=== PATIENT | male | born 1980 | race Caucasian/White ===

== ENCOUNTER 2021-05-05 01:34 | Emergency (ER) | payer MEDICAID ==
--- NOTE | 2021-05-05 02:54 | NUR ---
CALLED FOR MIN. NO ANSWER
--- NOTE | 2021-05-05 03:14 | NUR ---
CALLED FOR TRIAGE. NO ANSWER
--- NOTE | 2021-05-05 03:57 | NUR ---
CALLED FOR TRIAGE. NO ANSWER
== END 2021-05-05 03:58 | disposition left against medical advice (07) ==
LOC: ER 01:41
DX: Z53.21 Procedure and treatment not carried out due to patient leaving prior to being seen by health care provider (principal)

== ENCOUNTER 2021-05-05 06:14 | Inpatient (IN) | payer MEDICAID ==
[~2021-05-05] VITALS: Ht 190.5 cm; Wt 89.1 kg
--- NOTE | 2021-05-05 06:45 | NUR ---
PT AAOX4. BIBSELF C/O HAVING RLE REDNESS, SWELLING, AND PAIN X 4 DAYS. PT WAS PLACED ON KEFLEX. PLACED IN BED 3 ON MONITOR AND PULSE OX.
--- NOTE | 2021-05-05 07:06 | NUR ---
LINE ESTABLISHED LAC 18G, BLOOD COLLECTED, SENT TO LAB.
[2021-05-05] MEDS ORDERED: CEFTRIAXONE 1GM BAG (ER ONLY) 50 ML IV ONE (07:11)
[2021-05-05] MEDS ORDERED: CEFTRIAXONE 1 G in IV D5W 50 ML IV ONE (07:30)
[2021-05-05] MEDS ORDERED: VANCOMYCIN 1 GM in IV D5W 250 ML IV ONE (07:30)
[2021-05-05] MEDS ORDERED: IV NS 0.9% 1,000 ML IV ONE (07:30)
[2021-05-05 07:31] LABS: BASOPHILS % (AUTO) 0.6 % (0.0-2.0); EOSINOPHILS % (AUTO) 1.1 % (0.0-6.0); HEMATOCRIT 35 % (39-51); HEMOGLOBIN 12.1 g/dL (13.5-17.5); LYMPHOCYTES # (AUTO) 1.2 K/uL (0.8-4.8); LYMPHOCYTES % (AUTO) 13.7 % (20.0-44.0); MEAN CORPUSCULAR HGB CONC 35 g/dl (31.0-36.0); MEAN CORPUSCULAR VOLUME 95 fL (80-96); MONOCYTES # (AUTO) 0.9 K/uL (0.1-1.30); MONOCYTES % (AUTO) 10.5 % (2.0-12.0); NEUTROPHILS # (AUTO) 6.5 K/uL (1.8-8.9); NEUTROPHILS % (AUTO) 74.1 % (43.0-81.0); PLATELET COUNT (AUTO) 276 K/uL (150-450); RED BLOOD CELL COUNT(AUTO) 3.68 MIL/uL (4.5-6.0); WHITE BLOOD COUNT (AUTO) 8.7 K/uL (4.3-11.0)
--- NOTE | 2021-05-05 07:58 | NUR ---
TI[employer] DEVELOPER AT BEDSIDE
[2021-05-05 09:29] LABS: CALCIUM, SERUM 9.5 mg/dL (8.5-10.1); CREATININE 1.1 mg/dL (0.6-1.3); POTASSIUM 4.3 mmol/L (3.5-5.1)
[2021-05-05] MEDS ORDERED: MAG HYDROX/AL HYDROX/SIMETH 30 ML UDC PO PRN (10:00)
[2021-05-05] MEDS ORDERED: ONDANSETRON HCL/PF 4 MG/2 ML VIAL IVP PRN (10:00)
[2021-05-05] MEDS ORDERED: ACETAMINOPHEN 325 MG TABLET PO PRN (10:00)
[2021-05-05] MEDS ORDERED: ZOLPIDEM TARTRATE 5 MG TABLET PO PRN (10:00)
[2021-05-05] MEDS ORDERED: MAGNESIUM HYDROXIDE 30 ML UDC PO PRN (10:00)
[2021-05-05] MEDS ORDERED: ENOXAPARIN SODIUM 40 MG/0.4 ML DISP.SYRIN SQ ONE (10:04)
[2021-05-05] MEDS: ENOXAPARIN SODIUM 40 MG/0.4 ML DISP.SYRIN SQ SCH (10:17)
--- NOTE | 2021-05-05 10:53 | NUR ---
ROOM 317-1
--- NOTE | 2021-05-05 11:04 | NUR ---
REPORT GIVEN TO ABEBA GLASGOW
--- NOTE | 2021-05-05 11:28 | NUR ---
MS/FISHERIES TECHNICIAN NOTE RECEIVED PATIENT A TRANSFER FROM THE ER VIA [facility]. PATIENT IS ALERT AND ORIENTEDX4, ABLE TO MAKE NEEDS KNOWN. STABLE ON ROOM AIR WITH O2 SAT AT 98%. NO PAIN/DISTRESS NOTED AT THIS TIME. SKIN IS INTACT WITH SWELLING AND REDNESS NOTED ON RIGHT LOWER EXTREMITY DUE TO CELLULITIS A DIAGNOSIS. CONTINENT WITH BRP. IV ACCESS ON LEFT AC #20G IS INTACT AND PATENT ON SALINE LOCK. SAFETY PRECAUTIONS OBSERVED: BED LOCKED ON LOWEST POSITION, SIDE RAILS UP X2, CALL LIGHT WITHIN REACH. WILL CONTINUE TO MONITOR PATIENT.
[2021-05-05 17:03] LABS: IRON, SERUM 55 ug/dl (50-175); TOTAL IRON BINDING CAPACITY 173 ug/dl (250-450)
--- NOTE | 2021-05-05 17:25 | NUR ---
MS/RN NOTES PATIENT ASKED STAFF IF HE CAN GO DOWNSTAIRS TO GET SOMETHING IN HIS CAR. PATIENT IS ALERT AND ORIENTED X4. RN SENT TUYET DANIELLE TO ACCOMPANY PATIENT. TUYET DANIELLE WAITED IN THE FRONT LOBBY FOR THE PATIENT. PATIENT DID NOT CAME BACK AT THE LOBBY UNTIL AN HOUR LATER. PER PATIENT. HE IS WAITING FOR HIS MOM TO COME BEFORE HE GOES BACK UPSTAIRS IN HIS ROOM. RN EXPLAINED TO THE PATIENT THAT HE NEEDS TO BE IN HIS ROOM BECAUSE WE NEEDS TO MONITOR HIM AND ADMINISTER HIS MEDS. RN ALSO INFORMED PATIENT THAT SECURITY WILL NOTIFY RN IF PATIENT'S VISITOR COMES. PATIENT AGREED TO GO BACK TO HIS ROOM.
--- NOTE | 2021-05-05 19:16 | NUR ---
TELE/RN CLOSING NOTES PATIENT IS RESTING IN BED, ALERT AND ORIENTEDX4, ABLE TO MAKE NEEDS KNOWN. AMBULATORY. NO SOB, NO DISTRESS NOTED AT THIS TIME. LEFT AC #18G IS INTACT AND PATENT ON SALINE LOCK. ALL NEEDS MET. SAFETY PRECAUTIONS IN PLACED: BED LOCKED ON LOWEST POSITION, SIDE RAILS UPX2, CALL LIGHT WITHIN EASY REACH. WILL ENDORSE TO THE NEXT SHIFT FOR DAVID.
[2021-05-05 20:00] VITALS: BP 113/66
[2021-05-05] MEDS: VANCOMYCIN 1.25 GM in IV D5W 250 ML IV SCH (20:03)
--- NOTE | 2021-05-05 20:48 | NUR ---
RN OPENING PATIENT IN BED WITH EYES CLOSED, EASY TO AROUSE. A/OX4. NO S/S OF APPARENT DISTRESS TOLERATING ROOM AIR. NO C/O PAIN AT THIS TIME. NO FLUIDS RUNNING AT THIS TIME. SAFETY IN PLACE. WILL CONTINUE TO MONITOR.
--- NOTE | 2021-05-05 23:32 | NUR ---
MS RN NOTES PATIENT ASKED TO SMOKE. ASKED CHARGE NURSE YOAN. YOAN SAID IT IS OKAY FOR THE PATIENT TO SMOKE 1 TIME PER SHIFT, AND ACCOMPANIED BY TUYET BOYCE. PATIENT WENT DOWN AT THIS TIME WITH AUSTEN. PATIENT WAS REMINDED TO ONLY SMOKE WITHIN HOSPITAL PARAMETERS AND NOT TO GO TO HIS CAR. PATIENT ACKNOWLEDGED THIS.
--- NOTE | 2021-05-06 02:48 | NUR ---
MS RN NOTES PATIENT WENT DOWN AGAIN EVEN WHEN CHARGE NURSE TOLD HIM NOT TOO. I WAS WITH ANOTHER PATIENT AND PER YOAN PATIENT JUST WENT DOWN ON HIS OWN. CHARGE NURSE CALLED SECURITY AND AUSTEN BENZ AND LASHA REA TO FIND PATIENT. PATIENT FOUND IN HIS CAR. PER LASHA REA, PATIENT WAS FOUND IN HIS CAR DOING SOME KIND OF DRUG. PATIENT DOES ADMIT TO HEROINE USE OCCASIONALLY ON ADMISSION ENDORSED TO ME BY ABEBA, MORNING SHIFT RN.
--- NOTE | 2021-05-06 02:59 | NUR ---
MS RN NOTES PATIENT CAME BACK AT THIS TIME ESCORTED BY TUYET BOYCE.
[2021-05-06] MEDS ORDERED: ENOXAPARIN SODIUM 80 MG/0.8 ML DISP.SYRIN SQ SCH (03:00)
--- NOTE | 2021-05-06 06:32 | NUR ---
MS RN NOTES PATIENT IN BED WITH EYES CLOSED, EASY TO AROUSE. A/OX4. NO S/S OF APPARENT DISTRESS, TOLERATING ROOM AIR. NO C/O PAIN AT THIS TIME. NO FLUIDS RUNNING AT THIS TIME. ALL NEEDS ATTENDED, ALL SCHED MEDS ADMINISTERED. SAFETY KEPT IN PLACE THE WHOLE SHIFT. WILL ENDORSE CARE TO MORNING SHIFT RN.
[2021-05-06 07:09] LABS: BASOPHILS # (AUTO) 0.1 K/uL (0.0-0.2); EOSINOPHILS % (AUTO) 1.4 % (0.0-6.0); HEMATOCRIT 36 % (39-51); HEMOGLOBIN 12.4 g/dL (13.5-17.5); LYMPHOCYTES # (AUTO) 1.4 K/uL (0.8-4.8); LYMPHOCYTES % (AUTO) 16.6 % (20.0-44.0); MEAN CORPUSCULAR HGB CONC 34 g/dl (31.0-36.0); MEAN CORPUSCULAR VOLUME 95 fL (80-96); MONOCYTES # (AUTO) 0.9 K/uL (0.1-1.30); MONOCYTES % (AUTO) 11.1 % (2.0-12.0); NEUTROPHILS # (AUTO) 5.8 K/uL (1.8-8.9); NEUTROPHILS % (AUTO) 69.9 % (43.0-81.0); PLATELET COUNT (AUTO) 299 K/uL (150-450); RED BLOOD CELL COUNT(AUTO) 3.82 MIL/uL (4.5-6.0); WHITE BLOOD COUNT (AUTO) 8.3 K/uL (4.3-11.0)
--- NOTE | 2021-05-06 07:27 | NUR ---
MS RN OPENING NOTES: RECEIVED PATIENT ASLEEP IN BED, EASILY AWAKENS. A/O X4. ABLE TO MAKE NEEDS, DENIES PAIN OR ANY DISCOMFORTS AT THIS TIME. ON ROOM AIR, BREATHING EVEN AND UNLABORED. IV ACCESS ON LAC G#18 INTACT, PATENT AND FLUSHES WELL. SAFETY MEASURES IN PLACE: BED IN LOWEST LOCKED POSITION WITH SR UP X2. CALL LIGHT WITHIN REACH. WILL CONTINUE TO MONITOR PT ACCORDINGLY.
[2021-05-06 07:48] LABS: CALCIUM, SERUM 9.3 mg/dL (8.5-10.1); MAGNESIUM 2.4 mg/dL (1.8-2.4); PHOSPHORUS 3.6 mg/dL (2.5-4.9); POTASSIUM 4.2 mmol/L (3.5-5.1)
[2021-05-06] MEDS: VANCOMYCIN 1.25 GM in IV D5W 250 ML IV SCH (08:55)
[2021-05-06] MEDS: ENOXAPARIN SODIUM 40 MG/0.4 ML DISP.SYRIN SQ SCH (08:56)
--- NOTE | 2021-05-06 09:18 | NUR ---
RN NOTES PT INSISTED THAT HE WANTED TO SMOKE UNASSISTED AND STATED THAT HE'S INDEPENDENT AND DOESN'T NEED ANYONE TO ASSIST HIM. EXPLAINED HOSPITAL SMOKING POLICY AND HE ALSO NEEDS TO SIGN CONSENT TO GO OUT TO SMOKE. PT VERBALIZED UNDERSTANDING AND SIGNED CONSENT. PT WENT OUT AMBULATORY.
--- NOTE | 2021-05-06 10:54 | NUR ---
RN NOTES PT JUST RETURNED FROM SMOKING OUTSIDE. PER TUYET SILVA HE FOUND PT INSIDE HIS CAR, SO HE TOLD HIM TO GO BACK TO UNIT. I ASKED HIM WHERE HIS CIGARETTES AND [place] [employer]PERATOR, HE STATED THAT HE LEFT IT IN HIS CAR. PT EDUCATED THAT HE'S NOT ALLOWED TO GO OUT FOR NOW UNTIL SEEN BY .
--- NOTE | 2021-05-06 11:23 | NUR ---
RN NOTES [employer] SPOKE TO PT REGARDING SMOKING POLICY. PT IS ALLOWED TO SMOKE OUTSIDE WITH ONE STAFF TO ACCOMPANY HIM. WILL ENDORSE.
[2021-05-06] MEDS: VANCOMYCIN 1 GM in IV D5W 250 ML IV SCH (16:06)
[2021-05-06] MEDS ORDERED: BACITRACIN ZINC OINT (15 GM) 15 GM TUBE TP SCH (17:00)
--- NOTE | 2021-05-06 18:45 | NUR ---
MS RN CLOSING NOTES: PATIENT RESTING IN BED AT THIS TIME. A/O X4. ABLE TO MAKE NEEDS, AMBULATORY WITH STEADY GAIT. REDNESS PERSIST TO RIGHT KNEE AND LOWER LEG. ON ROOM AIR, BREATHING EVEN AND UNLABORED. IV ACCESS ON LAC G#18 INTACT, PATENT AND FLUSHES WELL. ALL NEEDS AND CARE ATTENDED WELL. SAFETY MEASURES KEPT IN PLACE: BED IN LOWEST LOCKED POSITION WITH SR UP X2. CALL LIGHT WITHIN REACH. WILL ENDORSE DAVID TO CABLE SPLICER NURSE.
--- NOTE | 2021-05-06 23:58 | NUR ---
MS RN NOTE PATIENT ASKED TO GO DOWN AND SMOKE. ASKED CHARGE NURSE ABOUT THE MATTER AND AGREED BUT TO BE ACCOMPANIED BY SOMEONE. PATIENT AND TUYET , Addendum: 05/07/21 at 0000 by DELMA LOUISE RN MS RN NOTE PATIENT ASKED TO GO DOWN AND SMOKE. ASKED CHARGE NURSE ABOUT THE MATTER AND AGREED BUT TO BE ACCOMPANIED BY SOMEONE. PATIENT WENT DOWN AT THIS TIME ACCOMPANIED BY TUYET FRIEND.
--- NOTE | 2021-05-07 00:15 | NUR ---
MS RN NOTE PATIENT CAME BACK AT THIS TIME.
[2021-05-07] MEDS: VANCOMYCIN 1 GM in IV D5W 250 ML IV SCH (00:30)
--- NOTE | 2021-05-07 02:43 | NUR ---
MS RN NOTE PATIENT COMPLAINING OF BACK PAIN. GIVEN TYLENOL PRN.
--- NOTE | 2021-05-07 04:15 | NUR ---
MS RN NOTES DOCTOR SURY ORDERED NORCO / Q6 PRN PO. ORDER CARRIED OUT.
[2021-05-07] MEDS ORDERED: HYDROCODONE/APAP 5/325MG TABLET PO PRN (04:30)
--- NOTE | 2021-05-07 06:45 | NUR ---
MS RN NOTES PATIENT AMA AT THIS TIME. SIGNED PAPER WORKS. REFUSED TO SIGN OF BELONGINGS LIST AND JUST LEFT RIGHT AFTER SIGNING THE AMA PAPER. CHARGE NURSE AWARE, AND WAS THE ONE TOLD BY THE PATIENT THAT HE WANTS TO AMA. WILL DO RISK INCIDENT REPORT. IV KRISTA TAKEN OFF. ID BAND TAKEN OFF OF PATIENT AND DISCARDED. PATIENT A/OX4 AND IN NO DISTRESS WHEN HE LEFT.
--- NOTE | 2021-05-07 07:47 | NUR ---
ms rn note risk incident report done and completed at this time.
== END 2021-05-07 07:00 | disposition left against medical advice (07) | DRG 383 ==
LOC: ER 06:16 → MED 10:56
PROVIDERS: ADMIT Nurse Practitioner Acute Care; ATTEND Nurse Practitioner Acute Care
DX: L03.115 Cellulitis of right lower limb (principal); D64.9 Anemia, unspecified; L02.415 Cutaneous abscess of right lower limb; Z72.0 Tobacco use
CPT/HCPCS: 36415; 71045-TC; 80048-TC; 80061-TC; 80202-TC; 83540-TC; 83735-TC; 84100-TC; 85025-TC; 87040-TC; 87081-TC; 93971-TC; C9803; G0378; J0696; J1650; J3370; J7030; J7040; J7060

== ENCOUNTER 2021-05-29 14:00 | Emergency (ER) | payer MEDICAID ==
[~2021-05-29] VITALS: Ht 190.5 cm; Wt 93.0 kg
[2021-05-29 14:11] VITALS: BP 116/74
--- NOTE | 2021-05-29 14:20 | NUR ---
AT BEDSIDE FOR EVAL.
--- NOTE | 2021-05-29 14:27 | NUR ---
Patient discharged to home in stable condition. Written and verbal after care instructions given. Patient verbalizes understanding of instruction.
== END 2021-05-29 14:27 | disposition home or self-care (01) ==
LOC: ER 14:03
DX: I87.2 Venous insufficiency (chronic) (peripheral) (principal); F17.200 Nicotine dependence, unspecified, uncomplicated